=== PATIENT | female | born 1990 | race Caucasian/White ===

== ENCOUNTER 2016-11-02 10:01 | Emergency (ER) | payer SELFPAY ==
[2016-11-02 10:06] VITALS: BP 101/69; PULSE 74; TEMP 98.3; O2SAT 99
--- NOTE | 2016-11-02 10:55 | C.PDOC ---
History Of Present Illness 26 y/o female presents to the ED for evaluation of blisters to the plantar aspect of b/l feet. Patient notes the pain is exacerbated with walking in flip flops. She denies direct trauma/injury to affected area. Time Seen by Provider: 11/02/16 10:50 Chief Complaint (Nursing): Abnormal Skin Integrity History Per: Patient History/Exam Limitations: no limitations Onset/Duration Of Symptoms: Days Current Symptoms Are (Timing): Still Present Location Of Injury: Right: Foot (plantar aspect ), Left: Foot Quality Of Symptoms: Painful Additional History Per: Patient Past Medical History Reviewed: Historical Data, Nursing Documentation, Vital Signs Vital Signs: Last Vital Signs Temp 98.3 F 11/02/16 10:05 Pulse 74 11/02/16 10:05 Resp 18 11/02/16 11:07 BP 101/69 11/02/16 10:05 Pulse Ox 99 11/02/16 11:59 - Medical History PMH: No Chronic Diseases Surgical History: No Surg Hx Family History: States: Unknown Family Hx - Social History Hx Alcohol Use: Yes Hx Substance Use: No Review Of Systems Except As Marked, All Systems Reviewed And Found Negative. Skin: Positive for: Other (+blisters on plantar aspect of b/l feet ) Physical Exam - Physical Exam Appears: Non-toxic, No Acute Distress, Other (+foul-smelling ) Skin: Normal Color, Warm, Dry, Other (+2cm round blister on right plantar surface, burst 2cm blister on left plantar surface ) Head: Atraumatic, Normacephalic Eye(s): bilateral: Normal Inspection Oral Mucosa: Moist Neck: Supple Extremity: Normal ROM, No Tenderness, Capillary Refill (less than 2 seconds ), No Deformity, No Swelling Pulses: Left Dorsalis Pedis: Normal, Right Dorsalis Pedis: Normal Neurological/Psych: Oriented x3, Normal Speech, Normal Cognition, Other (+flat affect) Gait: Steady ED Course And Treatment O2 Sat by Pulse Oximetry: 99 (on RA) Pulse Ox Interpretation: Normal Medical Decision Making Medical Decision Making: blisters on plantar feet, from walking in old flip-flops filthy dirty feet, foul smelling, ? underlying menally ill instructed to wash feet daily and wear socks and shoes/sneakers instead of flipflops, don't pop blisters. Disposition Doctor Will See Patient In The: Office Counseled Patient/Family Regarding: Studies Performed, Diagnosis - Disposition Referrals: [facility] [Outside] Disposition: HOME/ ROUTINE Disposition Time: 10:54 Condition: GOOD Additional Instructions: wash feet dialy with soap and water clean dry socks and shoes for this week do not pop blisters. follow-up in our Clinic as needed. Instructions: Blister (ED) - Clinical Impression Clinical Impression: Blister of plantar aspect of foot - Scribe Statement The provider has reviewed the documentation as recorded by the Scribe (Genevieve Perry) Provider Attestation: All medical record entries made by the Scribe were at my direction and personally dictated by me. I have reviewed the chart and agree that the record accurately reflects my personal performance of the history, physical exam, medical decision making, and the department course for this patient. I have also personally directed, reviewed, and agree with the discharge instructions and disposition.
[2016-11-02 11:07] VITALS: RESP 18
== END 2016-11-02 11:08 | disposition home or self-care (01) ==
LOC: C.ER 10:01
DX: S90.822A Blister (nonthermal), left foot, initial encounter (principal); S90.821A Blister (nonthermal), right foot, initial encounter; X50.3XXA Overexertion from repetitive movements, initial encounter; Y93.01 Activity, walking, marching and hiking; Y92.89 Other specified places as the place of occurrence of the external cause